=== PATIENT | female | born 1955 | race Caucasian/White ===

== ENCOUNTER 2019-01-19 09:53 | Emergency (ER) | payer OTHER ==
[2019-01-19 10:09] VITALS: BP 169/109
--- NOTE | 2019-01-19 10:09 | ED Physician Documentation ---
General Adult - HISTORIAN Historian: patient - HPI Stated Complaint: poison nathaniel Chief Complaint: General Adult Onset: days ago (1) Timing: still present Severity: moderate Further Comments: yes (Pt is a 63 yo female with rash on upper extremities and trunk x 1 day. Pt had been out cutting trees when this bagan. Pt used some anti-itch cream, but this has not been too helpful.) - ROS CONST: no problems EYES/ENT: none CVS/RESP: none GI/: none MS/SKIN/LYMPH: rash - PAST HX Past History: other (CVA/TIA) Allergies/Adverse Reactions: Allergies Allergy/AdvReac Type Severity Reaction Status Date / Time codeine Allergy Verified 01/19/19 10:04 Home Medications: Ambulatory Orders Medication Instructions Recorded NK 01/19/19 - SOCIAL HX Smoking History: cigarettes - FAMILY HX Family History: No - VITAL SIGNS Vital Signs: Vital Signs Temp Pulse Resp BP Pulse Ox 98.2 F 81 20 169/109 97 01/19/19 10:00 01/19/19 10:00 01/19/19 10:00 01/19/19 10:00 01/19/19 10:00 - REVIEWED ASSESSMENTS Nursing Assessment Reviewed: Yes Vitals Reviewed: Yes Progress - Progress Progress: Solu-medrol 125 mg IM in ER. Rx Prednisone 10 mg. Take 6 tablets at one time by mouth once daily for 2 days; then take 5 tabs by mouth once daily for 2 days; Then take 4 tabs by mouth once daily for 2 days; then take 3 tablets by mouth once daily for 2 days; then take 2 tabs by mouth once daily for 2 days; then take 1 tablet by mouth once daily for 2 days; then stop. May also use [id number] Benadryl as directed and [id number] Hydrocortisone cream. General Adult Physical Exam - PHYSICAL EXAM GENERAL APPEARANCE: no distress EENT: eye inspection normal NECK: normal inspection, supple RESPIRATORY: no resp distress, chest non-tender, breath sounds normal CVS: reg rate & rhythm, heart sounds normal ABDOMEN: soft, no organomegaly, normal bowel sounds BACK: normal inspection SKIN: other (rash uppper extremities, trunk c/w poison nathaniel) EXTREMITIES: non-tender, normal range of motion, no evidence of injury NEURO: oriented X3, motor nml, sensation nml Discharge Clincal Impression: Poison nathaniel Condition: Good Disposition: HOME, SELF-CARE Decision to Admit: NO Decision Time: 10:21
[2019-01-19] MEDS ORDERED: methylPREDNISolone SOD SUCC 125 MG/2 ML VIAL IM ONE (10:11)
[2019-01-19] MEDS ORDERED: 0.9 % SODIUM CHLORIDE 1,000 ML IV ONE (10:44)
== END 2019-01-19 10:31 | disposition home or self-care (01) ==
LOC: SUPCPDRO 09:53 → ED 09:53
DX: L23.7 Allergic contact dermatitis due to plants, except food (principal)
CPT/HCPCS: 96372; 99281; 99283; J2930; 80053